=== PATIENT | female | born 1980 | race Caucasian/White ===

== ENCOUNTER 2016-12-27 07:16 | Emergency (ER) | payer MEDICAID ==
[~2016-12-27] VITALS: Wt 63.0 kg
[~2016-12-27 07:16] MED LIST: ALBU8.5H3 INH; AZIT250T94 PO; BEN25 PO; CETI10CA PO; CIPR500T4 PO; DOXY100T20 PO; HYDR-3498 PO; IBUP-1542 PO; KETO5DRO58 OP; PHEN-537 PO; PRED20TA PO
[2016-12-27] MEDS ORDERED: ONDANSETRON 4 MG INJ IV STA (07:44)
[2016-12-27] MEDS ORDERED: KETOROLAC 30 MG INJ IV STA (07:44)
[2016-12-27] MEDS ORDERED: SOD CHLORIDE 0.9% 1,000 ML IV STA (07:44)
[2016-12-27] MEDS ORDERED: morphine 4 MG/ML VIAL IV STA (07:44)
--- NOTE | 2016-12-27 07:49 | ERA ---
ER Documentation Chief Complaint Date/Time DATE: 12/27/16 TIME: 07:46 Chief Complaint LOW ABD PAIN FOR 3 DAYS. SOME NAUSEA NO VOMITING. SOME URINARY FREQUENCY HPI This is a 36-year-old female that presents to the emergency department complaining of pelvic pain for 3 days. The patient indicates that the pain is a cramping sensation, intermittent with no alleviating or exacerbating factors. She is also been experiencing frequency urgency and dysuria for the past 3 days with no abnormal urethral discharge. The patient has had no fevers no shaking or chills. She denies any nausea vomiting and no diarrhea. The patient had a previous appendectomy, section and tubal ligation. She states her last menstrual cycle was 3 weeks prior to arrival. She is currently sexually active with one partner and denies any pain with sexual intercourse. She denies any abnormal vaginal bleeding. She took Motrin for analgesic control but this did not improve her pain. She states the pain has radiated to the left and right lower quadrant from the suprapubic region just prior to arrival. She denies any blunt or penetrating abdominal wall trauma ROS All systems reviewed and are negative except as per history of present illness. Medications Home Meds Active Scripts Ciprofloxacin Hcl* (Ciprofloxacin Hcl*) 500 Mg Tablet, 500 MG PO BID for 7 Days , TAB Prov:JILLIAN SMART 12/27/16 Ibuprofen* (Motrin*) 600 Mg Tab, 600 MG PO Q8, #30 TAB Prov:JILLIAN SMART 12/27/16 Hydrocodone/Acetaminophen ([place] 5-325 Tablet) 1 Each Tablet, 1 TAB PO Q6H Y for PAIN, #20 TAB Prov:JILLIAN SMART 12/27/16 Cetirizine Hcl* (Zyrtec*) 10 Mg Capsule, 10 MG PO DAILY, #10 TAB.CHEW Prov:LAINA FERNANDEZ PA-C 11/06/16 Albuterol Sulfate* (Proair HFA*) 8.5 Gm Hfa.aer.ad, 2 PUFF INH Q4, #1 INHALER Prov:LAINA FERNANDEZ PA-C 11/06/16 Azithromycin* (Zithromax*) 250 Mg Tablet, 250 MG PO .ALAN DIRECTED, #6 TAB TAKE 500 MG (2 TABS) THE FIRST DAY THEN 250 MG (1 TAB) DAYS 2-5 Prov:LAINA FERNANDEZ PA-C 11/06/16 Ibuprofen* (Motrin*) 600 Mg Tab, 600 MG PO Q8, #30 TAB 0 Refills Prov:JOSE MILNER PA-C 03/29/16 Phenazopyridine Hcl* (Pyridium*) 100 Mg Tab, 100 MG PO TID Y for URINARY PAIN, # 9 TAB 0 Refills Prov:JOSE MILNER PA-C 03/29/16 Ciprofloxacin Hcl* (Ciprofloxacin Hcl*) 500 Mg Tablet, 500 MG PO BID for 10 Days , #20 TAB 0 Refills Prov:JOSE MILNER PA-C 03/29/16 Albuterol Sulfate* (Proair HFA*) 8.5 Gm Hfa.aer.ad, 2 PUFF INH Q4, #1 INHALER Prov:TYLER INMAN PA-C 02/22/16 Doxycycline Hyclate* (Doxycycline Hyclate*) 100 Mg Tablet.dr, 100 MG PO BID for 10 Days, TAB Prov:TYLER INMAN PA-C 02/22/16 Prednisone* (Prednisone*) 20 Mg Tab, 40 MG PO DAILY for 4 Days, TAB Prov:TYLER INMAN PA-C 02/22/16 Ketotifen Fumarate (ZADITOR) 5 Ml Drops, 5 ML OP DAILY, #1 BOTTLE Prov:TYLER INMAN PA-C 02/22/16 Albuterol Sulfate* (Proair HFA*) 8.5 Gm Hfa.aer.ad, 2 PUFF INH Q4, #1 INHALER Prov:ALLEN ZAIDISTNAHIDS A. DO 02/09/16 Diphenhydramine Hcl* (Benadryl*) 25 Mg Cap, 25 MG PO Q6, #30 CAP Prov:ALLEN ZAIDISTOLOS A. DO 02/09/16 Prednisone* (Prednisone*) 20 Mg Tab, 60 MG PO DAILY for 5 Days, TAB Prov:DYANAPOSTOLOS A. DO 02/09/16 Ibuprofen* (Motrin*) 600 Mg Tab, 600 MG PO Q6, #20 TAB Prov:LEV DIMAS MD 10/27/15 Hydrocodone Bit-Acetaminophen* ([place]*) 5-325 Mg Tab, 1 TAB PO Q6 Y for PAIN, # 16 TAB Prov:LEV DIMAS MD 10/27/15 Allergies Allergies: Coded Allergies: No Known Allergy (Unverified , 08/25/14) PMhx/Soc History of Surgery: Yes (APPY, ) Anesthesia Reaction: No Hx Neurological Disorder: No Hx Respiratory Disorders: No Hx Cardiac Disorders: No Hx Psychiatric Problems: No Hx Miscellaneous Medical Probl: No Hx Alcohol Use: No Hx Substance Use: No Hx Tobacco Use: No Smoking Status: Never smoker Physical Exam Vitals Vital Signs Date Time Temp Pulse Resp B/P Pulse Ox O2 Delivery O2 Flow Rate FiO2 12/27/16 07:19 97.8 75 20 108/68 100 Physical Exam Constitutional:Well-developed. Well-nourished. Patient lying supine in a stretcher, tearful secondary to pain HEENT:Normocephalic. Atraumatic.Pupils were equal round reactive to light. Moist mucous membranes.No tonsillar exudates. Neck: No nuchal rigidity. No lymphadenopathy. No posterior cervical spine tenderness or step-offs. Respiratory: Not using accessory muscles of respiration.Lungs were clear to auscultation bilaterally. No rhonchi. No rales. No wheezing. Cardiovascular: Regular rate regular rhythm.No murmurs. No rubs were appreciated.S1, S2 normal. Distal pulses are palpable 2+ bilaterally. GI: Abdomen was soft. Suprapubic tenderness with minimal tenderness in the left and right lower quadrant. Non Distended. No pulsatile abdominal masses or bruits. No rebound. No guarding. Bowel sounds were present and normal. Muscle skeletal: Full range of motion of both the upper and lower extremities bilaterally.Normal muscle tone.No assymetrical calf tenderness or swelling. Skin: No petechia, no purpura. No lesions on the palms or the soles of the feet. No maculopapular rash. NEURO: Patient was alert, awake, orientated x3.No facial droop. Gait observed and normal with no ataxia.Speech had regular rate and rhythm. No focal neurological deficits. Result Diagram: 12/27/16 0758 12/27/16 0758 Results 24 hrs Laboratory Tests Test 12/27/16 07:58 12/27/16 08:00 Activated Partial Thromboplast Time 25.3Sec Alanine Aminotransferase (ALT/SGPT) 17IU/L Albumin 4.2g/dl Albumin/Globulin Ratio 1.35 Alkaline Phosphatase 85IU/L Anion Gap 15 Aspartate Amino Transf (AST/SGOT) 19IU/L Basophils # 0.110^3/ul Basophils % 0.6% Blood Morphology Comment Blood Urea Nitrogen 6mg/dl Calcium Level 8.9mg/dl Carbon Dioxide Level 27mmol/L Chloride Level 104mmol/L Creatinine 0.69mg/dl Direct Bilirubin 0.00mg/dl Eosinophils # 0.210^3/ul Eosinophils % 1.8% Globulin 3.10g/dl Glucose Level 73mg/dl Hematocrit 40.3% Hemoglobin 13.3g/dl INR International Normalized Ratio 0.96 Indirect Bilirubin 0.3mg/dl Lymphocytes # 2.210^3/ul Lymphocytes % 25.3% Mean Corpuscular Hemoglobin 28.0pg Mean Corpuscular Hemoglobin Concent 32.9g/dl Mean Corpuscular Volume 85.0fl Mean Platelet Volume 9.6fl Monocytes # 0.410^3/ul Monocytes % 4.8% Neutrophils # 5.810^3/ul Neutrophils % 67.5% Nucleated Red Blood Cells # 0.010^3/ul Nucleated Red Blood Cells % 0.0/100WBC Platelet Count 68624^3/UL Potassium Level 3.8mmol/L Prothrombin Time 12.8Sec Prothrombin Time Ratio 1.0 Red Blood Count 4.7410^6/ul Red Cell Distribution Width 13.7% Sodium Level 142mmol/L Total Bilirubin 0.3mg/dl Total Protein 7.3g/dl White Blood Count 8.610^3/ul Urine Bacteria FEW Urine Bilirubin NEGATIVE Urine Clarity CLEAR Urine Color LT. YELLOW Urine Glucose NEGATIVE% Urine Hemoglobin NEGATIVE Urine Ketones NEGATIVE Urine Leukocyte Esterase TRACE Urine Microscopic RBC NONE SEEN/HPF Urine Microscopic WBC 2-5/HPF Urine Nitrite NEGATIVE Urine Specific [place] <=1.005 Urine Squamous Epithelial Cells MANY Urine Total Protein NEGATIVE Urine Urobilinogen 0.2 E.U./dL Urine pH 5.5 Current Medications Medications (Trade) Dose Ordered Sig/Alysa Route PRN Reason Start Time Stop Time Status Last Admin Dose Admin Sodium Chloride (NS) 1,000 ml @ 1,000 mls/hr Q1H STAT IV 12/27/16 07:44 2/20/17 08:43 DC 12/27/16 08:00 Morphine Sulfate (morphine) 4 mg ONCE STAT IV 12/27/16 07:44 12/27/16 07:46 DC 12/27/16 08:01 Ketorolac Tromethamine (Toradol) 30 mg ONCE STAT IV 12/27/16 07:44 12/27/16 07:46 DC 12/27/16 08:00 Ondansetron HCl (Zofran Inj) 4 mg ONCE STAT IV 12/27/16 07:44 12/27/16 07:46 DC 12/27/16 08:00 Procedures/MDM This patient presented to the emergency department with abdominal pain and was seen and evaluated by myself. My differential diagnosis included but was not limited to abdominal aortic aneurysm, appendicitis, pancreatitis, perforated peptic ulcer, perforated viscus, Boerhaaves syndrome or visceral pain such as diverticulitis, DKA, esophagitis, hepatitis or bowel obstruction. The patient was placed on a cardiovascular invasive specialist, continuous pulse oximetry, and IV access was established by nursing staff. Patient received intravenous morphine and Zofran for analgesic control. The patient had an ultrasound of the pelvis performed and there was a right ovarian cyst. There is no leukocytosis and the patient's pain had completely resolved. She had no evidence of urinary tract infection on the urinalysis but the patient did state she felt this was also the result of an early UTI and therefore requested a prescription of ciprofloxacin which was provided to the patient in addition to [place] and Motrin as needed. The patient was discharged home in fair condition. They were instructed to return to the emergency department at any time if there was any worsening of their condition. The patient stated they would follow up with their PCP in the next 24-48 hours to initiate a suitable medication regimen under the care of their PCP as well as to allow their PCP to monitor any drug reactions. The patient was discharged home with prescriptions after they gave informed consent to the new medication. They were also fully informed by myself on the adverse effects and adverse drug interactions in order to provide adequate safeguards to prevent possible adverse reactions to medications. Departure Diagnosis: Primary Impression: Ovarian cyst Qualified Code: N83.201 - Cyst of right ovary Condition: Fair JILLIAN SMART Dec 27, 2016 07:49
[2016-12-27 08:15] LABS: BASOPHIL # 0.1 10^3/ul (0.0-0.1); BASOPHILS % 0.6 % (0.0-2.0); EOSINOPHILS # 0.2 10^3/ul (0.0-0.5); EOSINOPHILS % 1.8 % (0.0-7.0); HEMATOCRIT 40.3 % (37.0-47.0); HEMOGLOBIN 13.3 g/dl (12.0-16.0); LYMPHOCYTES # 2.2 10^3/ul (0.8-2.9); LYMPHOCYTES % 25.3 % (15.0-51.0); MEAN CORPUSCULAR HGB CONC 32.9 g/dl (32.0-37.0); MEAN PLATELET VOLUME 9.6 fl (7.4-10.4); MONOCYTE # 0.4 10^3/ul (0.3-0.9); MONOCYTES % 4.8 % (0.0-11.0); NEUTROPHIL # 5.8 10^3/ul (1.6-7.5); NEUTROPHILS % 67.5 % (39.0-77.0); PLATELET COUNT 316 10^3/UL (140-440); RED BLOOD COUNT 4.74 10^6/ul (4.20-5.40); RED CELL DISTRIBUTION WIDTH 13.7 % (11.5-14.5); UNCORRECTED WBC 8.6 10^3/ul (4.8-10.8); WHITE BLOOD COUNT 8.6 10^3/ul (4.8-10.8)
[2016-12-27 08:22] LABS: CONDITION 1
[2016-12-27 08:25] LABS: INR 0.96; PROTIME 12.8 Sec (12.2-14.2)
[2016-12-27 08:26] LABS: PARTIAL THROMBOPLASTIN TIME 25.3 Sec (25.0-35.0)
[2016-12-27 08:27] LABS: ADD UMIC YES; URINE BILIRUBIN (Dip) NEGATIVE (NEGATIVE); URINE BLOOD (Dip) NEGATIVE (NEGATIVE); URINE COLOR LT. YELLOW (YELLOW); URINE GLUCOSE (Dip) NEGATIVE (NEGATIVE); URINE KETONES (Dip) NEGATIVE (NEGATIVE); URINE LEUKOCYTE ESTERASE (Dip) TRACE (NEGATIVE); URINE NITRITE (Dip) NEGATIVE (NEGATIVE); URINE TOTAL PROTEIN (Dip) NEGATIVE (NEGATIVE); URINE UROBILINOGEN (Dip) 0.2 E.U./dL (0.1-1.0)
[2016-12-27 08:29] LABS: ALBUMIN 4.2 g/dl (3.3-4.9)
[2016-12-27 08:30] LABS: POTASSIUM 3.8 mmol/L (3.5-5.1)
[2016-12-27 08:32] LABS: ALBUMIN/GLOBULIN RATIO 1.35; BILIRUBIN,INDIRECT 0.3 mg/dl (0-1.1); BILIRUBIN,TOTAL 0.3 mg/dl (0.2-1.3); CREATININE 0.69 mg/dl (0.44-1.00); TOTAL PROTEIN 7.3 g/dl (6.1-8.1)
[2016-12-27 08:33] LABS: CALCIUM 8.9 mg/dl (8.4-10.2)
[2016-12-27 08:43] LABS: SQUAMOUS EPITHELIAL CELL,UR MANY; URINE RBCS NONE SEEN /HPF (0)
[2016-12-27 08:44] LABS: BACTERIA,URINE FEW
--- NOTE | 2016-12-27 08:57 | RADRPT ---
PROCEDURE: US Pelvis CLINICAL INDICATION: Right pelvic pain TECHNIQUE: Sonographic evaluation of the pelvis was performed utilizing both transabdominal and tr ansvaginal technique. Curved array transabdominal transducer technique as well as a high frequency endovaginal probe was utilized. Images were reviewed on the high-resolution PACS workstation. COMPARISON: 08/25/2014 FINDINGS: The uterus is normal in size, echogenicity, and morphology measuring 8.7 x 5.6 x 6.5 cm in dimension . The uterus is retroverted. The endometrium measures 15.1 mm in diameter. The normal trilaminar stripe of the endometrium is preserved. The right ovary measures 3.3 x 2.1 x 3.0 cm in dimension, and demonstrates a 2.3 cm simple cyst. Th e left ovary measures 2.7 x 1.7 x 1.9 cm in dimension. No ovarian torsion, adnexal mass or pelvic f ree fluid is identified. IMPRESSION: 1. Right ovary demonstrates a 2.3 cm simple cyst. 2. Otherwise unremarkable ultrasound exam. RPTAT: EE .Urbano Newsome MD, Date Time Electronically viewed and signed by .Urbano Newsome MD, on 12/27/2016 08:56 .R/
[2016-12-27] MEDS ORDERED: IBUP-1542 PO (09:28)
[2016-12-27] MEDS ORDERED: HYDR-906 PO (09:28)
[2016-12-27] MEDS ORDERED: CIPR500T4 PO (09:32)
== END 2016-12-27 09:41 | disposition home or self-care (01) ==
LOC: FTE 07:16
DX: N83.201 Unspecified ovarian cyst, right side (principal); R11.0 Nausea; R10.2 Pelvic and perineal pain
CPT/HCPCS: 76830; 76856; 80053; 81001; 85025; 85610; 85730; 87086; 96374; 96375; J1885; J2270; J2405; J7030; Z7502; 81003

== ENCOUNTER 2017-03-30 18:14 | Emergency (ER) | payer MEDICAID ==
[~2017-03-30] VITALS: Ht 167.6 cm; Wt 63.0 kg
[~2017-03-30 18:14] MED LIST changes: +HYDR-906 PO
[2017-03-30 18:38] VITALS: Ht 167.6 cm; Wt 63.0 kg
--- NOTE | 2017-03-30 19:53 | ERA ---
ER Documentation Chief Complaint Date/Time DATE: 03/30/17 TIME: 19:50 Chief Complaint pelvic pain today w/ vag bleeding. denies HPI This is a delightful 36-year-old female who presents complaining of left lower pelvic pain. Patient is currently on her menstrual cycle. Patient is currently sexually active. Patient denies multiple sexual partners, discharge, dysuria, decreased appetite or aggravating/relieving factors. Patient has taken ibuprofen 5 hours ago with no relief. Patient was diagnosed with ovarian cyst 2.5 cm 1 month ago. Patient states that the pain is the same. Patient denies any other medical conditions. ROS All systems reviewed and are negative except as per history of present illness. Medications Home Meds Active Scripts Ibuprofen* (Motrin*) 600 Mg Tab, 600 MG PO Q6H Y for PAIN AND OR ELEVATED TEMP, #30 TAB Prov:REBEKAH PRYOR PA-C 03/30/17 Ciprofloxacin Hcl* (Ciprofloxacin Hcl*) 500 Mg Tablet, 500 MG PO BID for 7 Days , TAB Prov:JILLIAN SMART 12/27/16 Ibuprofen* (Motrin*) 600 Mg Tab, 600 MG PO Q8, #30 TAB Prov:JILLIAN SMART 12/27/16 Hydrocodone/Acetaminophen ([place] 5-325 Tablet) 1 Each Tablet, 1 TAB PO Q6H Y for PAIN, #20 TAB Prov:JILLIAN SMART 12/27/16 Cetirizine Hcl* (Zyrtec*) 10 Mg Capsule, 10 MG PO DAILY, #10 TAB.CHEW Prov:LAINA FERNANDEZ PA-C 11/06/16 Albuterol Sulfate* (Proair HFA*) 8.5 Gm Hfa.aer.ad, 2 PUFF INH Q4, #1 INHALER Prov:LAINA FERNANDEZ PA-C 11/06/16 Azithromycin* (Zithromax*) 250 Mg Tablet, 250 MG PO .ALAN DIRECTED, #6 TAB TAKE 500 MG (2 TABS) THE FIRST DAY THEN 250 MG (1 TAB) DAYS 2-5 Prov:LAINA FERNANDEZ PA-C 11/06/16 Ibuprofen* (Motrin*) 600 Mg Tab, 600 MG PO Q8, #30 TAB 0 Refills Prov:JOSE MILNER PA-C 03/29/16 Phenazopyridine Hcl* (Pyridium*) 100 Mg Tab, 100 MG PO TID Y for URINARY PAIN, # 9 TAB 0 Refills Prov:ANNIAJOSE PA-C 03/29/16 Ciprofloxacin Hcl* (Ciprofloxacin Hcl*) 500 Mg Tablet, 500 MG PO BID for 10 Days , #20 TAB 0 Refills Prov:ANNIAJOSE ALVARENGA 03/29/16 Albuterol Sulfate* (Proair HFA*) 8.5 Gm Hfa.aer.ad, 2 PUFF INH Q4, #1 INHALER Prov:TYLER INMAN PA-C 02/22/16 Doxycycline Hyclate* (Doxycycline Hyclate*) 100 Mg Tablet.dr, 100 MG PO BID for 10 Days, TAB Prov:TYLER INMAN PA-C 02/22/16 Prednisone* (Prednisone*) 20 Mg Tab, 40 MG PO DAILY for 4 Days, TAB Prov:TYLER INMAN PA-C 02/22/16 Ketotifen Fumarate (ZADITOR) 5 Ml Drops, 5 ML OP DAILY, #1 BOTTLE Prov:TYLER INMAN PA-C 02/22/16 Albuterol Sulfate* (Proair HFA*) 8.5 Gm Hfa.aer.ad, 2 PUFF INH Q4, #1 INHALER Prov:ALLEN ZAIDISTNAHIDS Ade DO 02/09/16 Diphenhydramine Hcl* (Benadryl*) 25 Mg Cap, 25 MG PO Q6, #30 CAP Prov:ALLEN ZAIDISTOLOS ABrigitte DO 02/09/16 Prednisone* (Prednisone*) 20 Mg Tab, 60 MG PO DAILY for 5 Days, TAB Prov:DYANAPOSTOLOS A. DO 02/09/16 Ibuprofen* (Motrin*) 600 Mg Tab, 600 MG PO Q6, #20 TAB Prov:LEV DIMAS MD 10/27/15 Hydrocodone Bit-Acetaminophen* ([place]*) 5-325 Mg Tab, 1 TAB PO Q6 Y for PAIN, # 16 TAB Prov:LEV DIMAS MD 10/27/15 Allergies Allergies: Coded Allergies: No Known Allergy (Unverified , 08/25/14) PMhx/Soc History of Surgery: Yes (APPY, , tubal ligation) Anesthesia Reaction: No Hx Neurological Disorder: No Hx Respiratory Disorders: No Hx Cardiac Disorders: No Hx Psychiatric Problems: No Hx Miscellaneous Medical Probl: No Hx Alcohol Use: No Hx Substance Use: No Hx Tobacco Use: No Smoking Status: Never smoker Physical Exam Vitals Vital Signs Date Time Temp Pulse Resp B/P Pulse Ox O2 Delivery O2 Flow Rate FiO2 03/30/17 18:38 97.8 88 20 133/80 100 Physical Exam Const: 36-year-old female in mild to moderate distress. Head: Atraumatic Eyes: Normal Conjunctiva ENT: Normal External Ears, Nose and Mouth. Neck: Full range of motion..~ No meningismus. Resp: Clear to auscultation bilaterally Cardio: Regular rate and rhythm, no murmurs Abd: Left lower pelvic tenderness. Soft, non tender, non distended. Normal bowel sounds Skin: No petechiae or rashes Back: No midline or flank tenderness Ext: No cyanosis, or edema Neur: Awake and alert Psych: Normal Mood and Affect Result Diagram: 03/30/17195403/30/171954 Results 24 hrs Laboratory Tests Test 03/30/17 19:23 03/30/17 19:55 Urine Color LT. YELLOW Urine Clarity SLIGHTLY CLOUDY Urine pH 6.0 Urine Specific [place] 1.020 Urine Ketones NEGATIVE Urine Nitrite NEGATIVE Urine Bilirubin NEGATIVE Urine Urobilinogen 0.2 E.U./dL Urine Leukocyte Esterase NEGATIVE Urine Microscopic RBC >50/HPF Urine Microscopic WBC 0-2/HPF Urine Hemoglobin 3+ Urine Glucose NEGATIVE% Urine Total Protein NEGATIVE White Blood Count 8.810^3/ul Red Blood Count 4.5010^6/ul Hemoglobin 12.1g/dl Hematocrit 37.6% Mean Corpuscular Volume 83.6fl Mean Corpuscular Hemoglobin 26.9pg Mean Corpuscular Hemoglobin Concent 32.2g/dl Red Cell Distribution Width 14.1% Platelet Count 33208^3/UL Mean Platelet Volume 10.7fl Neutrophils % 65.4% Lymphocytes % 27.2% Monocytes % 6.0% Eosinophils % 1.0% Basophils % 0.1% Nucleated Red Blood Cells % 0.0/100WBC Neutrophils # 5.710^3/ul Lymphocytes # 2.410^3/ul Monocytes # 0.510^3/ul Eosinophils # 0.110^3/ul Basophils # 0.010^3/ul Nucleated Red Blood Cells # 0.010^3/ul Sodium Level 139mmol/L Potassium Level 4.4mmol/L Chloride Level 103mmol/L Carbon Dioxide Level 25mmol/L Anion Gap 15 Blood Urea Nitrogen 10mg/dl Creatinine 0.72mg/dl Glucose Level 87mg/dl Calcium Level 9.3mg/dl Current Medications Medications (Trade) Dose Ordered Sig/Alysa Route PRN Reason Start Time Stop Time Status Last Admin Dose Admin Acetaminophen/ Hydrocodone Bitart ([place] (5/325)) 1 tab ONCE ONCE PO 03/30/17 20:00 03/30/17 20:01 DC 03/30/17 19:55 Procedures/MDM Patient was evaluated and worked up for left lower quadrant abdominal/pelvic discomfort. Patient was given 600 mg ibuprofen with minimal relief. Patient was then given 5 mg of [place] with moderate relief. Patient continues to ask for pain medication. The workup included labs and urine which were unremarkable and an ultrasound that showed the followin. Unremarkable pelvic ultrasound with interval resolution of right ovarian cyst compared to 12/27/2016. 2. Incidental left ovarian follicle of 1 cm. The current most likely diagnosis is pain secondary to ovarian follicle versus regular menstrual cycle cramps versus pain medication seeking behavior. The treatment plan will thus include 600 mg ibuprofen every 4-6 hours as needed with follow-up with PCP for chronic management. At this time I do not suspect ovarian torsion, tubo-ovarian abscess, mechanical obstruction, ectopic , hernia, appendicitis, intestinal ischemia, PID, AAA, diverticulitis or cystitis. The patient is well appearing, and tolerates PO. I have spoke with the patient regarding their condition and future management. They have verbally responded that they understand their status and treatment plan. The patients vitals are stable, and their current condition is appropriate for discharge. The patient will be given discharge instructions with return precautions. Departure Diagnosis: Primary Impression: Ovarian follicular cyst Additional Impression: Acute pain in female pelvis Condition: Stable Additional Instructions: Follow up with your PCP within the next 1-3 days for a more thorough evaluation and a possible referral to a specialist. Return the the emergency department immediately if symptoms worsen or change. If you have any questions regarding medications, ask your pharmacist or us before you leave. If any adverse reactions occur while taking your medications, discontinue the treatment and return to the emergency department immediately. Take your medications as directed, and complete the entire course of treatment. REBEKAH PRYOR PA-C March 30, 2017 19:52
[2017-03-30] MEDS ORDERED: HYDROCODONE/APAP (5/325) TAB PO ONE (20:00)
[2017-03-30 20:10] LABS: ADD SCAN DIFF NO
[2017-03-30 20:14] LABS: BASOPHILS % 0.1 % (0.0-2.0); EOSINOPHILS # 0.1 10^3/ul (0.0-0.5); HEMATOCRIT 37.6 % (37.0-47.0); HEMOGLOBIN 12.1 g/dl (12.0-16.0); LYMPHOCYTES # 2.4 10^3/ul (0.8-2.9); LYMPHOCYTES % 27.2 % (15.0-51.0); MEAN CORPUSCULAR HEMOGLOBIN 26.9 pg (29.0-33.0); MEAN CORPUSCULAR HGB CONC 32.2 g/dl (32.0-37.0); MEAN CORPUSCULAR VOLUME 83.6 fl (82.0-101.0); MEAN PLATELET VOLUME 10.7 fl (7.4-10.4); MONOCYTE # 0.5 10^3/ul (0.3-0.9); NEUTROPHIL # 5.7 10^3/ul (1.6-7.5); NEUTROPHILS % 65.4 % (39.0-77.0); PLATELET COUNT 329 10^3/UL (140-415); RED CELL DISTRIBUTION WIDTH 14.1 % (11.5-14.5); WHITE BLOOD COUNT 8.8 10^3/ul (4.8-10.8)
[2017-03-30 20:26] LABS: ADD UMIC YES; URINE BILIRUBIN (Dip) NEGATIVE (NEGATIVE); URINE BLOOD (Dip) 3+ (NEGATIVE); URINE COLOR LT. YELLOW (YELLOW); URINE GLUCOSE (Dip) NEGATIVE (NEGATIVE); URINE KETONES (Dip) NEGATIVE (NEGATIVE); URINE LEUKOCYTE ESTERASE (Dip) NEGATIVE (NEGATIVE); URINE NITRITE (Dip) NEGATIVE (NEGATIVE); URINE TOTAL PROTEIN (Dip) NEGATIVE (NEGATIVE); URINE UROBILINOGEN (Dip) 0.2 E.U./dL (0.1-1.0)
[2017-03-30 20:31] LABS: POTASSIUM 4.4 mmol/L (3.5-5.1)
[2017-03-30 20:34] LABS: CREATININE 0.72 mg/dl (0.44-1.00)
[2017-03-30 20:35] LABS: CALCIUM 9.3 mg/dl (8.4-10.2)
[2017-03-30 20:43] LABS: URINE RBCS >50 /HPF (0)
--- NOTE | 2017-03-30 22:19 | RADRPT ---
PROCEDURE: US Pelvis. CLINICAL INDICATION: Pelvic pain left-sided TECHNIQUE: Multiple sonographic images of the pelvis were obtained utilizing a transabdominal and endovaginal technique. The images were reviewed on a PACS workstation. COMPARISON: 12/27/2016 FINDINGS: Uterus: Normal in size, contour and echogenicity with no evidence for myometrial masses. Size is est imated at 8.8 x 7.1 x 6.8 cm. Cervix: A Nabothian cyst is again noted the finding measuring 7 mm Endometrium: Normal in thickness; 4.8 mm. Right ovary / adnexa: Normal in size estimated at 1.7 x 1.4 x 1.1 cm. No evidence for masses, norm al blood flow on Doppler interrogation. Previously seen cyst has resolved in the interval. Left ovary/adnexa: Normal in size estimated at 3.4 x 2.4 x 1.8 cm. No evidence for solid masses, no rmal blood flow on Doppler interrogation. Incidental follicles noted measuring 1 cm. Cul-de-sac: No evidence of free fluid. RPTAT:HJJR IMPRESSION: 1. Unremarkable pelvic ultrasound with interval resolution of right ovarian cyst compared to 017. 2. Incidental left ovarian follicle of 1 cm. Physician Bryan Date Time Electronically viewed and signed by Physician Bryan on 03/30/2017 22:19 /
[2017-03-30] MEDS ORDERED: IBUP-1542 PO (22:24)
[2017-03-30 22:41] VITALS: BP 108/74; PULSE 78; RESP 16; TEMP 98.2
== END 2017-03-30 22:43 | disposition home or self-care (01) ==
LOC: FTE 18:14
DX: N83.02 Follicular cyst of left ovary (principal)
CPT/HCPCS: 76830; 76856; 80048; 81001; 85025; Z7610